=== PATIENT | female | born 1985 | race Caucasian/White ===

== ENCOUNTER 2021-10-30 00:27 | Emergency (ER) | payer MEDICAID, SELFPAY ==
[2021-10-30] VITALS (7 sets, daily range): BP systolic 107–120; BP diastolic 71–94; PULSE 65–98; RESP 18; TEMP 36.8; O2SAT 96–100; BMI 24.7
--- NOTE | 2021-10-30 01:00 | ECG_ITS ---
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 Measurements Intervals [place] Rate: 61 P: 47 OK: 164 QRS: 46 QRSD: 90 T: 54 QT: 418 QTc: 422 Interpretive Statements SINUS RHYTHM WITH SINUS ARRHYTHMIA No previous ECG available for comparison Electronically Signed On 10-30-2021 19:42:37 CDT by Be Alfredo M.D. [id number]
[2021-10-30] MEDS: ondansetron 2 mg/ML SDV 2 mL 4 MG IVP (01:09)
[2021-10-30] MEDS: sodium chloride 0.9% 1,000 ML 999 ML IV (01:09)
--- NOTE | 2021-10-30 01:11 | W.ED.WEAKNES ---
HPI - Weakness General: Chief complaint: Weakness Stated complaint: NOT FEELING WELL/ TOOK UNKNOWN PILL Time Seen by Provider: 10/30/21 00:29 Source: patient History of Present Illness: 36-year-old female who felt well earlier in the day. Towards bedtime, she states that she had smoked some marijuana, and began to get sleepy so she took her nighttime medication. She saw a blue pill in the floor, which resembled one of her normal medications, so she picked it up and took it. She is now not sure if this was an extra pill that she took or not. She began to get dizzy, has some chest discomfort, and was nauseated. Some of her symptoms are improved at this point, but some were not. She still having some palpitations she did not vomit. MD Complaint: generalized weakness Onset (ago): hour(s) Duration: constant Location: generalized Migration: none Severity: moderate Associated symptoms: Reports chest pain, chills and nausea; Denies confusion, melena, dysuria, fever(s) or headache(s) Review of Systems Const: Reports: chills; Denies: fever(s) ENMT: Denies: throat pain Card: Reports: chest pain Resp: Denies: dyspnea, productive cough or non-productive cough GI: Reports: nausea; Denies: abdominal pain or melena : Denies: dysuria Musc: Reports: back pain Neuro: Denies: headache(s) or confusion [facility] ED Female Reproductive History: Date of last menstrual period: 10/11/19 Physical Exam Const: GENERAL APPEARANCE: cooperative and lethargic; not frail appearing ORIENTATION/CONSCIOUSNESS: Yes lethargic HENMT: COMMON NORMALS: normocephalic, atraumatic and Normal external nose present HEAD & SCALP: normocephalic and atraumatic FACE & SINUS: normal facial exam NOSE: Normal external nose present Eye: COMMON NORMALS: Equal, round and reactive pupils present and EOMs intact bilaterally PUPIL: Yes Equal, round and reactive pupils present Chest: CHEST: Yes Symmetrical chest wall rise Resp: COMMON NORMALS: normal respiratory effort, No use of accessory muscles and clear to auscultation bilaterally AUSCULTATION: clear to auscultation bilaterally Cardio: COMMON NORMALS: regular rate and regular rhythm RATE: regular rate RHYTHM: regular rhythm GI: COMMON NORMALS: Normal to inspection, nondistended, normoactive bowel sounds present, Soft to palpation and non-tender PALPATION: Yes Soft to palpation Extremity: COMMON NORMALS: no pedal edema Neuro: ANIL COMA SCALE: document GCS findings Anil coma scale eye opening: Spontaneous Anil coma scale verbal response: Orientated Anil coma scale motor response: Obey commands Anil coma scale total score: 15 SENSORIUM/ORIENTATION: Yes lethargic Course Vital Signs: Vital signs: Vital Signs Temperature 98.2 F 10/30/21 00:29 Pulse Rate 90 10/30/21 00:29 Respiratory Rate 18 10/30/21 00:29 Blood Pressure 119/94 10/30/21 00:29 Pulse Oximetry 96 10/30/21 00:29 MDM - Weakness Medical Decision Making Patient feeling much improved. EKG shows sinus rhythm with sinus arrhythmia. [place] is normal. Intervals are normal. Rate is 60. No ST changes. Troponin is negative. CBC is normal. BMP is essentially normal. No evidence of toxicity on laboratory. She will be allowed home. Lab Data : 10/30/21 00:33 10/30/21 00:33 Laboratory Results WBC 9.9 10^3/uL (4.0-10.0) 10/30/21 00:33 RBC 4.57 10^6/uL (4.1-5.3) 10/30/21 00:33 Hgb 13.6 g/dL (11.5-15.3) 10/30/21 00:33 Hct 38.6 % (37.0-47.0) 10/30/21 00:33 MCV 84.5 fl (81-99) 10/30/21 00:33 MCH 29.8 pg (28.0-34.0) 10/30/21 00:33 MCHC 35.2 g/dL (30.0-36.0) 10/30/21 00:33 RDW 12.4 % (12.1-15.1) 10/30/21 00:33 Plt Count 312 10^3/cmm (130-400) 10/30/21 00:33 MPV 11.3 fL (7.4-10.4) H 10/30/21 00:33 Neut % (Auto) 66.0 % 10/30/21 00:33 Lymph % (Auto) 25.5 % 10/30/21 00:33 [place] % (Auto) 6.8 % 10/30/21 00:33 Eos % (Auto) 0.5 % 10/30/21 00:33 Baso % (Auto) 0.9 % 10/30/21 00:33 Neut # (Auto) 6.51 10^3/uL (1.8-7.7) 10/30/21 00:33 Lymph # (Auto) 2.5 10^3/uL (0.8-4.8) 10/30/21 00:33 [place] # (Auto) 0.7 10^3/uL (0.2-0.9) 10/30/21 00:33 Eos # (Auto) 0.1 10^3/uL (0.0-0.8) 10/30/21 00: Baso # (Auto) 0.1 10^3/uL (0.0-0.1) 10/30/21 00:33 Nucleated RBC % (auto) 0 % 10/30/21 00: Nucleated RBCs # 0.0 /100WBC 10/30/21 00:33 Sodium 134 mmol/L (136-145) L 10/30/21 00:33 Potassium 3.6 mmol/L (3.5-5.1) 10/30/21 00: Chloride 103 mmol/L (98-107) 10/30/21 00: Carbon Dioxide 21 mmol/L (22-29) L 10/30/21 00:33 Anion Gap 13.6 (5-19) 10/30/21 00: BUN 8 mg/dL (6-20) 10/30/21 00: Creatinine 0.5 mg/dL (0.5-0.9) 10/30/21 00:33 GFR Calculation 138.1 mL/min (90-130) H 10/30/21 00:33 Glucose 92 mg/dL (65-115) 10/30/21 00: Calculated Osmolality 276 mOsm/kg (285-295) L 10/30/21 00: Calcium 9.0 mg/dL (8.5-10.5) 10/30/21 00: Total Bilirubin 0.5 mg/dL (0.15-1.2) 10/30/21 00: AST 19 U/L (0-32) 10/30/21 00:33 ALT 28 U/L (0-33) 10/30/21 00:33 Alkaline Phosphatase 74 IU/L (35-105) 10/30/21 00:33 Troponin T Gen 5 ng/L 6 ng/L (0-10) 10/30/21 00:33 Total Protein 6.9 g/dL (6.6-8.7) 10/30/21 00:33 Albumin 4.2 g/dL (3.5-5.2) 10/30/21 00:33 Globulin 2.7 g/dL (1.3-4.6) 10/30/21 00:33 Salicylates 1.5 mg/dL (3-10) L 10/30/21 00:33 Acetaminophen < 5.0 ug/mL (10-30) L 10/30/21 00:33 [place] 0.1 mmol/L (0.6-1.2) L 10/30/21 00:05 Ethyl Alcohol < 10 mg/dL (0-10) 10/30/21 00:33 Discharge Plan Discharge Patient Disposition: Home Clinical Impression: Generalized weakness Condition: Stable Discharge Orders: Discharge ED (Routine); Ordered 10/30/21 Ordered By: Conrad España Referrals: Shahram Mancilla [Primary Care Provider] - 4-7 days Discharge Diet: Advance as tolerated Discharge Activity: Increase activity as tolerated Patient Instructions: Weakness (Generalized) Activity Restrictions/Additional Instructions: Return for fever greater than 100, worsening weakness, speech or language problems, any other concerning symptoms. Coding Level of Care Code ED Professional Services Consultant for Ben Fwd Exam Comprehensive
[2021-10-30 01:18] LABS: Basophils # 0.1 10^3/uL (0.0-0.1); Basophils % 0.9 %; Eosinophils # 0.1 10^3/uL (0.0-0.8); Eosinophils % 0.5 %; Hematocrit 38.6 % (37.0-47.0); Hemoglobin 13.6 g/dL (11.5-15.3); Lymphocytes # 2.5 10^3/uL (0.8-4.8); Lymphocytes % 25.5 %; Mean Corpuscular HGB Conc 35.2 g/dL (30.0-36.0); Mean Corpuscular Hemoglobin 29.8 pg (28.0-34.0); Mean Corpuscular Volume 84.5 fl (81-99); Mean Platelet Volume 11.3 fL (7.4-10.4); Monocytes # 0.7 10^3/uL (0.2-0.9); Monocytes % 6.8 %; Neutrophils # 6.51 10^3/uL (1.8-7.7); Nucleated Red Blood Cells % 0 %; Platelet Count 312 10^3/cmm (130-400); Red Blood Count 4.57 10^6/uL (4.1-5.3); Red Cell Distribution Width 12.4 % (12.1-15.1); White Blood Count 9.9 10^3/uL (4.0-10.0)
[2021-10-30 01:31] LABS: Alanine Aminotransferase 28 U/L (0-33); Albumin Level 4.2 g/dL (3.5-5.2); Alkaline Phosphatase 74 IU/L (35-105); Anion Gap 13.6 (5-19); Aspartate Amino Transferase 19 U/L (0-32); Blood Urea Nitrogen 8 mg/dL (6-20); Carbon Dioxide 21 mmol/L (22-29); Chloride 103 mmol/L (98-107); Globulin 2.7 g/dL (1.3-4.6); Glomerular Filtration Rate 138.1 mL/min (90-130); Glucose 92 mg/dL (65-115); Osmolality Calculated 276 mOsm/kg (285-295); Potassium 3.6 mmol/L (3.5-5.1); Salicylate 1.5 mg/dL (3-10); Sodium 134 mmol/L (136-145); Total Bilirubin 0.5 mg/dL (0.15-1.2); Total Protein 6.9 g/dL (6.6-8.7)
[2021-10-30 01:32] LABS: Acetaminophen < 5.0 ug/mL (10-30); Alcohol Level < 10 mg/dL (0-10); Troponin T (5th) Once 6 ng/L (0-10)
[2021-10-30 01:46] LABS: Lithium 0.1 mmol/L (0.6-1.2)
[2021-10-30 03:54] LABS: Add Urine Microscopic? NO; Charge for UA Resulting for Rev
[2021-10-30 03:56] LABS: Bilirubin Urine Neg (Negative); Blood Urine Neg (Negative); Glucose Urine UA Norm (Normal); Ketones Urine Negative (Negative); Leukocyte Esterase Urine Negative (Negative); Nitrate Urine Negative (Negative); Protein Urine Neg (Negative); Specific Gravity, Urine 1.005 (1.005-1.030); Urine Appearance Clear (CLEAR); Urine Color Straw (Yellow); Urobilinogen Urine Norm (Negative); pH Urine 6 (5-7)
[2021-10-30 04:05] LABS: Amphetamines Screen Urine Negative (Negative); Barbiturates Screen Urine Negative (Negative); Benzodiazepines Screen Urine Negative (Negative); Cocaine Screen Urine Negative (Negative); Opiate Screen Urine Negative (Negative); PCP Screen Urine Negative (Negative); THC Screen Urine Positive (Negative)
== END 2021-10-30 03:30 | disposition home or self-care (01) ==
PROVIDERS: Emergency Provider Emergency Medicine; PCP Family Medicine
DX: R53.1 Weakness (principal)
CPT/HCPCS: 80053; 80178; 80306; 80307; 81003; 84484; 85025; 93005; 96361; 96374; 99284; J2405; J7030

== ENCOUNTER 2022-02-18 20:42 | Emergency (ER) | payer MEDICAID, SELFPAY ==
[2022-02-18 20:52] VITALS: BMI 24.1
[2022-02-18 20:59] VITALS: BP 113/78; PULSE 76; RESP 18; TEMP 36.8; O2SAT 96
[2022-02-18 21:32] LABS: Basophils # 0.1 10^3/uL (0.0-0.1); Basophils % 0.9 %; Eosinophils # 0.9 10^3/uL (0.0-0.8); Eosinophils % 6.6 %; Hematocrit 45.1 % (37.0-47.0); Hemoglobin 15.1 g/dL (11.5-15.3); Lymphocytes # 3.8 10^3/uL (0.8-4.8); Lymphocytes % 27.3 %; Mean Corpuscular HGB Conc 33.5 g/dL (30.0-36.0); Mean Corpuscular Hemoglobin 29.7 pg (28.0-34.0); Mean Corpuscular Volume 88.8 fl (81-99); Mean Platelet Volume 10.3 fL (7.4-10.4); Monocytes # 0.9 10^3/uL (0.2-0.9); Monocytes % 6.6 %; Neutrophils # 8.17 10^3/uL (1.8-7.7); Neutrophils % 58.2 %; Nucleated Red Blood Cells % 0 %; Platelet Count 349 10^3/cmm (130-400); Red Blood Count 5.08 10^6/uL (4.1-5.3)
--- NOTE | 2022-02-18 21:32 | ECG_ITS ---
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 Measurements Intervals [place] Rate: 59 P: 55 MS: 148 QRS: 62 QRSD: 83 T: 61 QT: 398 QTc: 396 Interpretive Statements SINUS BRADYCARDIA POSSIBLE LEFT ATRIAL ENLARGEMENT [-0.1mV P-WAVE IN V1/V2] Compared to ECG 10/30/2021 01:17:00 Sinus rhythm no longer present Sinus arrhythmia no longer present Electronically Signed On 02-19-2022 7:35:34 CDT by Uvaldo Valdez M.D. [id number]
[2022-02-18 22:00] LABS: SARS Covid-2 Antigen Negative (Negative)
[2022-02-18 22:01] LABS: Add Urine Microscopic? NO; Charge for UA Resulting for Rev
[2022-02-18 22:03] LABS: Alanine Aminotransferase 21 U/L (0-33); Albumin Level 4.2 g/dL (3.5-5.2); Alkaline Phosphatase 86 U/L (35-105); Anion Gap 16.2 (5-19); Aspartate Amino Transferase 16 U/L (0-32); Blood Urea Nitrogen 16 mg/dL (6-20); Carbon Dioxide 22 mmol/L (22-29); Chloride 103 mmol/L (98-107); Globulin 3.2 g/dL (1.3-4.6); Glomerular Filtration Rate 70.1 mL/min (90-130); Glucose 95 mg/dL (65-115); Osmolality Calculated 285 mOsm/kg (285-295); Potassium 4.2 mmol/L (3.5-5.1); Salicylate 0.7 mg/dL (3-10); Sodium 137 mmol/L (136-145); Thyroid Stimulating Hormone 1.68 uIU/mL (0.27-4.20); Total Bilirubin 0.6 mg/dL (0.15-1.2); Total Protein 7.4 g/dL (6.6-8.7)
[2022-02-18 22:04] LABS: Urine Appearance Clear (CLEAR); Urine Color Yellow (Yellow)
[2022-02-18 22:04] LABS: Acetaminophen < 5.0 ug/mL (10-30); Alcohol Level < 10 mg/dL (0-10)
[2022-02-18 22:05] LABS: Bilirubin Urine Neg (Negative); Blood Urine Neg (Negative); Glucose Urine UA Norm (Normal); HCG Qualitative Urine. Negative (Negative); Ketones Urine Negative (Negative); Leukocyte Esterase Urine Negative (Negative); Nitrate Urine Negative (Negative); Protein Urine Neg (Negative); Specific Gravity, Urine 1.025 (1.005-1.030); Urobilinogen Urine Neg (Negative); pH Urine 5 (5-7)
[2022-02-18 22:13] LABS: Amphetamines Screen Urine Positive (Negative); Barbiturates Screen Urine Negative (Negative); Benzodiazepines Screen Urine Negative (Negative); Cocaine Screen Urine Negative (Negative); Opiate Screen Urine Negative (Negative); PCP Screen Urine Negative (Negative); THC Screen Urine Positive (Negative)
--- NOTE | 2022-02-18 22:43 | W.ED.PSYCHS ---
HPI - Psych General: Chief Complaint: Psychiatric Symptoms Stated Complaint: MHE Time Seen by Provider: 02/18/22 20:52 Source: patient History of Present Illness: 36-year-old female with a history of depression. She presents with worsening depression, some hallucinations at times, and a feeling of worthlessness. She stated to triage that I just want to go into the [place] and cut my wrist . She is tearful on exam. She has had multiple hospitalizations in the past, the last one was over a year ago in [place]. MD complaint: feels depressed Onset (ago): week(s) (2) Duration: constant History of same: Yes Relieving factors: none Exacerbating factors: none Associated psychiatric symptoms: depression, suicidal ideation and auditory hallucinations Associated symptoms: Reports auditory hallucinations, depression and suicidal ideation; Deny visual hallucinations or delusions Treatments prior to arrival: none If self harm: admits thoughts of self harm Review of Systems Const: Denies: fever(s) Card: Denies: chest pain Resp: Reports: non-productive cough (chronic); Denies: dyspnea or productive cough GI: Denies: abdominal pain, vomiting or diarrhea : Denies: difficulty voiding or dysuria Skin/Breast: Denies: rash Neuro: Denies: confusion Psych: Reports: depression, auditory hallucinations and suicidal ideation; Denies: visual hallucinations [facility] Female Reproductive History: Date of last menstrual period: 10/11/19 Physical Exam Const: GENERAL APPEARANCE: cooperative; not ill appearing and not frail appearing HENMT: COMMON NORMALS: normocephalic, atraumatic and Normal external nose present HEAD & SCALP: normocephalic and atraumatic FACE & SINUS: normal facial exam and face symmetric NOSE: Normal external nose present Eye: COMMON NORMALS: Equal, round and reactive pupils present and EOMs intact bilaterally PUPIL: Yes Equal, round and reactive pupils present Neck/C-Spine: GENERAL: Yes trachea midline Chest: CHEST: Yes Symmetrical chest wall rise Resp: COMMON NORMALS: normal respiratory effort, No retractions, No use of accessory muscles and clear to auscultation bilaterally AUSCULTATION: clear to auscultation bilaterally Cardio: COMMON NORMALS: regular rate and regular rhythm RATE: regular rate RHYTHM: regular rhythm GI: COMMON NORMALS: Normal to inspection, nondistended, normoactive bowel sounds present Extremity: COMMON NORMALS: no pedal edema Neuro: KIRAN COMA SCALE: document GCS findings Kiran coma scale eye opening: Spontaneous Kiran coma scale verbal response: Orientated Kiran coma scale motor response: Obey commands Kiran coma scale total score: 15 SPEECH: speech normal SENSORY EXAM: Yes extremities (intact) Psych: COMMON NORMALS: speech normal ATTITUDE: Yes Withdrawn affect present ACTIVITY/MOTOR BEHAVIOR: Yes psychomotor slowing SPEECH: Yes normal speech MOOD & AFFECT: Yes depressed mood and Yes tearful THOUGHT CONTENT: No delusions ATTENTION/CONCENTRATION: Yes attention grossly intact and Yes concentration grossly intact MEMORY/COGNITION: Yes memory grossly intact and Yes cognition grossly intact INSIGHT: Fair insight present (Psych) JUDGEMENT: Fair judgement present (Psych) Skin: COMMON NORMALS: no rashes or lesions noted GENERAL SKIN EXAM: no rashes or lesions noted Course Vital Signs: Vital signs: Vital Signs Temperature 98.2 F 02/18/22 20:59 Pulse Rate 76 02/18/22 20:59 Respiratory Rate 18 02/18/22 20:59 Blood Pressure 113/78 02/18/22 20:59 Pulse Oximetry 96 02/18/22 20:59 MDM - Psych Medical Decision Making Patient has significant depression, with suicidal ideation. Her white blood cell count is mildly elevated, but with no shift. Her BMP is normal. Liver enzymes are normal. Urinalysis is negative. Urine drug screen is positive for amphetamines and marijuana. This could be contributing. She is medically stable. She came in willingly. We have no beds available at this facility. We believe we have an accepting facility in [facility]. Transport when available. Lab Data : 02/18/22 21:27 02/18/22 21: Laboratory Results WBC 14.0 10^3/uL (4.0-10.0) H 02/18/22 21: RBC 5.08 10^6/uL (4.1-5.3) 02/18/22 21: Hgb 15.1 g/dL (11.5-15.3) 02/18/22 21: Hct 45.1 % (37.0-47.0) 02/18/22 21: MCV 88.8 fl (81-99) 02/18/22 21: MCH 29.7 pg (28.0-34.0) 02/18/22 21: MCHC 33.5 g/dL (30.0-36.0) 02/18/22 21: RDW 13.0 % (12.1-15.1) 02/18/22: Plt Count 349 10^3/cmm (130-400) 02/18/22 21: MPV 10.3 fL (7.4-10.4) 02/18/22 21: Neut % (Auto) 58.2 % 02/18/22: Lymph % (Auto) 27.3 % 02/18/22 21: [place] % (Auto) 6.6 % 02/18/22: Eos % (Auto) 6.6 % 02/18/22: Baso % (Auto) 0.9 % 02/18/22: Neut # (Auto) 8.17 10^3/uL (1.8-7.7) H 02/18/22: Lymph # (Auto) 3.8 10^3/uL (0.8-4.8) 02/18/22: [place] # (Auto) 0.9 10^3/uL (0.2-0.9) 02/18/22: Eos # (Auto) 0.9 10^3/uL (0.0-0.8) H 02/18/22: Baso # (Auto) 0.1 10^3/uL (0.0-0.1) 02/18/22: Nucleated RBC % (auto) 0 % 02/18/22: Nucleated RBCs # 0.0 /100WBC 02/18/22 21: Sodium 137 mmol/L (136-145) 02/18/22 21: Potassium 4.2 mmol/L (3.5-5.1) 02/18/22: Chloride 103 mmol/L (98-107) 02/18/22: Carbon Dioxide 22 mmol/L (22-29) 02/18/22 21: Anion Gap 16.2 (5-19) 02/18/22 21: BUN 16 mg/dL (6-20) 02/18/22: Creatinine 0.9 mg/dL (0.5-0.9) 02/18/22 21:27 GFR Calculation 70.1 mL/min (90-130) L 02/18/22 21: Glucose 95 mg/dL (65-115) 02/18/22 21: Calculated Osmolality 285 mOsm/kg (285-295) 02/18/22 21: Calcium 9.0 mg/dL (8.5-10.5) 02/18/22 21: Total Bilirubin 0.6 mg/dL (0.15-1.2) 02/18/22 21: AST 16 U/L (0-32) 02/18/22 21: ALT 21 U/L (0-33) 02/18/22 21: Alkaline Phosphatase 86 U/L (35-105) 02/18/22 21: Total Protein 7.4 g/dL (6.6-8.7) 02/18/22 21: Albumin 4.2 g/dL (3.5-5.2) 02/18/22: Globulin 3.2 g/dL (1.3-4.6) 02/18/22 21: TSH 1.68 uIU/mL (0.27-4.20) 02/18/22 21: HCG, Qual Negative (Negative) 02/18/22 21:54 Urine Color Yellow (Yellow) 02/18/22 21:54 Urine Appearance Clear (CLEAR) 02/18/22 21:54 Urine pH 5 (5-7) 02/18/22 21:54 Ur Specific [place] 1.025 (1.005-1.030) 02/18/22 21:54 Urine Protein Neg (Negative) 02/18/22 21:54 Urine Glucose (UA) Norm (Normal) 02/18/22 21:54 Urine Ketones Negative (Negative) 02/18/22 21:54 Urine Blood Neg (Negative) 02/18/22 21:54 Urine Nitrate Negative (Negative) 02/18/22 21:54 Urine Bilirubin Neg (Negative) 02/18/22 21:54 Urine Urobilinogen Neg mg/dL (Negative) 02/18/22 21:54 Ur Leukocyte Esterase Negative (Negative) 02/18/22 21:54 Salicylates 0.7 mg/dL (3-10) L 02/18/22 21:27 Urine Opiates Screen Negative ng/mL (Negative) 02/18/22 21:54 Acetaminophen < 5.0 ug/mL (10-30) L 02/18/22 21:27 Ur Barbiturates Screen Negative ng/mL (Negative) 02/18/22 21:54 Ur Phencyclidine Scrn Negative ng/mL (Negative) 02/18/22 21:54 Ur Amphetamines Screen Positive ng/mL (Negative) H 02/18/22 21:54 U Benzodiazepines Scrn Negative ng/mL (Negative) 02/18/22 21:54 [place] 0.4 mmol/L (0.6-1.2) L 02/18/22 23:14 Urine Cocaine Screen Negative ng/mL (Negative) 02/18/22 21:54 U Marijuana (THC) Screen Positive ng/mL (Negative) H 02/18/22 21:54 Ethyl Alcohol < 10 mg/dL (0-10) 02/18/22 21:27 SARS-CoV-2 Ag (Rapid) Negative (Negative) 02/18/22 21:27 Discharge Plan Discharge Patient Disposition: Xfer Psychiatric Hosp Clinical Impression: Suicidal ideation, Depression Condition: Stable Referrals: Shahram Mancilla [Primary Care Provider] - Coding Level of Care Code ED Entomology Teacher for Chg Fwd Exam Comprehensive
[2022-02-18 23:35] LABS: Lithium 0.4 mmol/L (0.6-1.2)
[2022-02-19 08:47] VITALS: BP 111/73; PULSE 65; RESP 16; TEMP 36.7; O2SAT 98
--- NOTE | 2022-02-19 09:24 | ED.C_ITS ---
HPI - Psych General: Chief Complaint: Psychiatric Symptoms Stated Complaint: MHE Time Seen by Provider: 02/18/22 20:52 Source: patient History of Present Illness: Duration: constant Relieving factors: none Exacerbating factors: none Treatments prior to arrival: none PFS ED PFSH: Medical History (Updated 02/27/22 @ 08:36 by Madonna Bass) Psychiatric care Female Reproductive History: Date of last menstrual period: 10/11/19 Course Vital Signs: Vital signs: Vital Signs Temperature 98.0 F 02/19/22 08:47 Pulse Rate 65 02/19/22 08:47 Respiratory Rate 16 02/19/22 08:47 Blood Pressure 111/73 02/19/22 08:47 Pulse Oximetry 98 02/19/22 08:47 Oxygen Delivery Me thod 02/19/22 08:47 MDM - Psych Lab Data : 02/18/22 21:27 02/18/22 21:27 Laboratory Results WBC 14.0 10^3/uL (4.0-10.0) H 02/18/22 21: RBC 5.08 10^6/uL (4.1-5.3) 02/18/22 21: Hgb 15.1 g/dL (11.5-15.3) 02/18/22 21: Hct 45.1 % (37.0-47.0) 02/18/22 21: MCV 88.8 fl (81-99) 02/18/22 21: MCH 29.7 pg (28.0-34.0) 02/18/22 21: MCHC 33.5 g/dL (30.0-36.0) 02/18/22 21: RDW 13.0 % (12.1-15.1) 02/18/22 21: Plt Count 349 10^3/cmm (130-400) 02/18/22 21: MPV 10.3 fL (7.4-10.4) 02/18/22 21: Neut % (Auto) 58.2 % 02/18/22 21: Lymph % (Auto) 27.3 % 02/18/22 21: [place] % (Auto) 6.6 % 02/18/22 21: Eos % (Auto) 6.6 % 02/18/22 21: Baso % (Auto) 0.9 % 02/18/22 21: Neut # (Auto) 8.17 10^3/uL (1.8-7.7) H 02/18/22 21: Lymph # (Auto) 3.8 10^3/uL (0.8-4.8) 02/18/22 21: [place] # (Auto) 0.9 10^3/uL (0.2-0.9) 02/18/22: Eos # (Auto) 0.9 10^3/uL (0.0-0.8) H 02/18/22 21: Baso # (Auto) 0.1 10^3/uL (0.0-0.1) 02/18/22: Nucleated RBC % (auto) 0 % 02/18/22 21: Nucleated RBCs # 0.0 /100WBC 02/18/22 21: Sodium 137 mmol/L (136-145) 02/18/22 21: Potassium 4.2 mmol/L (3.5-5.1) 02/18/22 21: Chloride 103 mmol/L (98-107) 02/18/22 21: Carbon Dioxide 22 mmol/L (22-29) 02/18/22: Anion Gap 16.2 (5-19) 02/18/22 21: BUN 16 mg/dL (6-20) 02/18/22 21: Creatinine 0.9 mg/dL (0.5-0.9) 02/18/22: GFR Calculation 70.1 mL/min (90-130) L 02/18/22 21: Glucose 95 mg/dL (65-115) 02/18/22 21: Calculated Osmolality 285 mOsm/kg (285-295) 02/18/22: Calcium 9.0 mg/dL (8.5-10.5) 02/18/22: Total Bilirubin 0.6 mg/dL (0.15-1.2) 02/18/22 21: AST 16 U/L (0-32) 02/18/22 21: ALT 21 U/L (0-33) 02/18/22 21: Alkaline Phosphatase 86 U/L (35-105) 02/18/22 21:27 Total Protein 7.4 g/dL (6.6-8.7) 02/18/22 21:27 Albumin 4.2 g/dL (3.5-5.2) 02/18/22 21:27 Globulin 3.2 g/dL (1.3-4.6) 02/18/22 21:27 TSH 1.68 uIU/mL (0.27-4.20) 02/18/22 21:27 HCG, Qual Negative (Negative) 02/18/22 21:54 Urine Color Yellow (Yellow) 02/18/22 21:54 Urine Appearance Clear (CLEAR) 02/18/22 21:54 Urine pH 5 (5-7) 02/18/22 21:54 Ur Specific [place] 1.025 (1.005-1.030) 02/18/22 21:54 Urine Protein Neg (Negative) 02/18/22 21:54 Urine Glucose (UA) Norm (Normal) 02/18/22 21:54 Urine Ketones Negative (Negative) 02/18/22 21:54 Urine Blood Neg (Negative) 02/18/22 21:54 Urine Nitrate Negative (Negative) 02/18/22 21:54 Urine Bilirubin Neg (Negative) 02/18/22 21:54 Urine Urobilinogen Neg mg/dL (Negative) 02/18/22 21:54 Ur Leukocyte Esterase Negative (Negative) 02/18/22 21:54 Salicylates 0.7 mg/dL (3-10) L 02/18/22 21:27 Urine Opiates Screen Negative ng/mL (Negative) 02/18/22 21:54 Acetaminophen < 5.0 ug/mL (10-30) L 02/18/22 21:27 Ur Barbiturates Screen Negative ng/mL (Negative) 02/18/22 21:54 Ur Phencyclidine Scrn Negative ng/mL (Negative) 02/18/22 21:54 Ur Amphetamines Screen Positive ng/mL (Negative) H 02/18/22 21:54 U Benzodiazepines Scrn Negative ng/mL (Negative) 02/18/22 21:54 [place] 0.4 mmol/L (0.6-1.2) L 02/18/22 23:14 Urine Cocaine Screen Negative ng/mL (Negative) 02/18/22 21:54 U Marijuana (THC) Screen Positive ng/mL (Negative) H 02/18/22 21:54 Ethyl Alcohol < 10 mg/dL (0-10) 02/18/22 21:27 SARS-CoV-2 Ag (Rapid) Negative (Negative) 02/18/22 21:27 Discharge Plan Discharge Patient Disposition: Home Clinical Impression: Suicidal ideation, Depression Condition: Stable Prescriptions: New Wellbutrin XL 150 mg tablet extended release 24 hr 150 mg PO QAM Qty: 30 1RF Seroquel 100 mg tablet 100 mg PO BID Qty: 60 1RF Discontinued quetiapine 25 mg tablet 50 mg PO BEDTIME No Action levetiracetam 500 mg tablet 500 mg PO BID lithium carbonate 150 mg capsule 300 mg PO BID hydroxyzine HCl 25 mg tablet 25 mg PO TID PRN (Reason: Itching) Discharge Orders: Discharge ED (Routine); Ordered 02/19/22 Ordered By: Martinez Trujillo Referrals: Shahram Mancilla [Primary Care Provider] - Discharge Diet: Advance as tolerated Discharge Activity: Resume usual activity Patient Instructions: Depression (ED) Coding Level of Care Code ED Senior Director Finance for Ben Piper
== END 2022-02-19 09:23 | disposition home or self-care (01) ==
PROVIDERS: Emergency Medicine; Emergency Provider Emergency Medicine; PCP Family Medicine
DX: F32.A Depression, unspecified (principal); R45.851 Suicidal ideations
CPT/HCPCS: 80053; 80178; 80306; 80307; 81003; 81025; 84443; 85025; 87426; 93005; 99285

== ENCOUNTER 2022-08-20 15:00 | Outpatient (CLI) | payer MEDICAID, SELFPAY ==
--- NOTE | 2022-08-20 15:14 | MM_ITS ---
WS: [id number] BILATERAL 3D TOMOSYNTHESIS DIGITAL SCREENING MAMMOGRAPHY WITH CAD CLINICAL INFORMATION: SCREENING HISTORY: Screening mammogram. Palpable lumps LEFT breast. RIGHT breast discharge clear COMPARISON: 2018 TECHNIQUE: Bilateral CC and MLO views. FINDINGS: Numerous palpable markers bilateral breast LEFT greater than RIGHT. Bilateral diagnostic mammography and ultrasound recommended in further evaluation. Ovoid nodule outer LEFT breast measuring 7 mm is u nchanged. Scattered fibroglandular densities bilaterally. Dense nodular breast tissue upper outer LEFT breast m easuring 10 mm appears progressed compared to previous. Recommend LEFT breast diagnostic mammography with spot magnification views. MM/[place] [id number] IMPRESSION: BI-RADS: 0-Incomplete: Need additional imaging evaluation FOLLOW UP: Need Additional Imaging LEFT breast diagnostic mammography and ultrasound recommended in further evalua tion of the multiple palpable abnormalities LEFT breast and increasing asymmetr ic density outer LEFT breast. RIGHT breast diagnostic mammography for breast discharge with subareolar ultras ound and ultrasound of the palpable abnormalities
== END 2022-08-20 15:01 | disposition home or self-care (01) ==
PROVIDERS: PCP Family Medicine; Visit Provider Family Medicine
DX: Z12.31 Encounter for screening mammogram for malignant neoplasm of breast (principal)
CPT/HCPCS: 77063; 77067

== ENCOUNTER 2022-10-25 14:52 | Outpatient (CLI) | payer MEDICAID, SELFPAY ==
--- NOTE | 2022-10-25 | US_ITS ---
WS: [id number] BILATERAL 3D TOMOSYNTHESIS DIGITAL DIAGNOSTIC MAMMOGRAPHY WITH CAD CLINICAL INFORMATION: ABNORMAL MAMMO HISTORY: Bilateral palpable lumps COMPARISON: August 20, 2022 TECHNIQUE: Bilateral CC, MLO, and ML views. FINDINGS: The breasts are composed of heterogeneous fibroglandular density, which can limit the detection of sm all underlying mass lesions. Bilateral palpable markers. Dense tissue upper outer LEFT breast unchang ed since August 20, 2022. Ultrasound described below. ULTRASOUND BREAST BILATERAL TECHNIQUE: Ultrasound bilateral breast focused area of concern. CLINICAL INFORMATION: ABNORMAL MAMMO FINDINGS: RIGHT BREAST: Ultrasound RIGHT breast in the areas of palpable concern. Several normal-appearing lymp h nodes near axillary tail area of palpable concern. Dense parenchymal tissue 7:00 position 2 cm from the nipple. No suspicious abnormalities deep to the nipple. Minimal ductal ectasia. LEFT BREAST: Ultrasound LEFT breast 11:00 position 3 cm from the nipple in area of palpable concern d emonstrates normal parenchymal tissue. Normal underlying parenchymal tissue in the 4:00 position 3 cm from the nipple. Lobulated intramammary lymph node at 3:00 position 4 cm from nipple. Additional inc idental lymph nodes the 1:00 position 5 cm from the nipple. No abnormalities in the LEFT areola. US/US breast BI limited* [id number] IMPRESSION: BI-RADS: 2-Benign FOLLOW UP: 1 Year Follow-up Recommend return to annual screening mammography.
--- NOTE | 2022-10-25 15:02 | MM_ITS ---
WS: [id number] BILATERAL 3D TOMOSYNTHESIS DIGITAL DIAGNOSTIC MAMMOGRAPHY WITH CAD CLINICAL INFORMATION: ABNORMAL MAMMO HISTORY: Bilateral palpable lumps COMPARISON: August 20, 2022 TECHNIQUE: Bilateral CC, MLO, and ML views. FINDINGS: The breasts are composed of heterogeneous fibroglandular density, which can limit the detection of sm all underlying mass lesions. Bilateral palpable markers. Dense tissue upper outer LEFT breast unchang ed since August 20, 2022. Ultrasound described below. ULTRASOUND BREAST BILATERAL TECHNIQUE: Ultrasound bilateral breast focused area of concern. CLINICAL INFORMATION: ABNORMAL MAMMO FINDINGS: RIGHT BREAST: Ultrasound RIGHT breast in the areas of palpable concern. Several normal-appearing lymp h nodes near axillary tail area of palpable concern. Dense parenchymal tissue 7:00 position 2 cm from the nipple. No suspicious abnormalities deep to the nipple. Minimal ductal ectasia. LEFT BREAST: Ultrasound LEFT breast 11:00 position 3 cm from the nipple in area of palpable concern d emonstrates normal parenchymal tissue. Normal underlying parenchymal tissue in the 4:00 position 3 cm from the nipple. Lobulated intramammary lymph node at 3:00 position 4 cm from nipple. Additional inc idental lymph nodes the 1:00 position 5 cm from the nipple. No abnormalities in the LEFT areola. MM/[id number] IMPRESSION: BI-RADS: 2-Benign FOLLOW UP: 1 Year Follow-up Recommend return to annual screening mammography.
== END 2022-10-25 14:53 | disposition home or self-care (01) ==
PROVIDERS: PCP Family Medicine; Visit Provider Nurse Practitioner Family
DX: R92.8 Other abnormal and inconclusive findings on diagnostic imaging of breast (principal)
CPT/HCPCS: 76642; 77062; G0279

== ENCOUNTER 2023-02-20 17:59 | Emergency (ER) | payer MEDICAID, SELFPAY ==
[2023-02-20 18:17] VITALS: BP 121/76; PULSE 84; RESP 17; TEMP 36.9; O2SAT 98; BMI 25.0
--- NOTE | 2023-02-20 18:25 | CTR_ITS ---
PROCEDURE INFORMATION: Exam: CT Head Without Contrast Exam date and time: 02/20/2023 7:15 PM Age: 37 years old Clinical indication: Condition or disease; Convulsions or seizures; Unspecified; Additional info: Seizure, AMS TECHNIQUE: Imaging protocol: Computed tomography of the head without contrast. Radiation optimization: All CT scans at this facility use at least one of these dose optimization techniques: automated exposure control; mA and/or kV adjustment per patient size (includes targeted exams where dose is matched to clinical indication); or iterative reconstruction. REPORTING DATA: Count of CT and Cardiac NM exams in prior 12 months: This patient has received 0 known CTs and 0 known cardiac nuclear medicine studies in the 12 months prior to the current study. COMPARISON: CT head wo con* [id number] 11/17/2018 4:33 PM RADIATION DOSE METRICS: Total DLP (mGy-cm): 1025 FINDINGS: Brain: The sulci are normal. No abnormal brain attenuation. No intracranial hemorrhage. Stable prominent cisterna magna versus arachnoid cyst in the right posterior fossa. Cerebral ventricles: No ventriculomegaly. Pituitary gland and sella: Partially empty sella. Paranasal sinuses: Small polyp or retention cyst in a posterior left ethmoid air cell. The paranasal sinuses are otherwise clear. Mastoid air cells: Visualized mastoid air cells are well aerated. Bones/joints: Unremarkable. No acute fracture. Soft tissues: Unremarkable. CT/CT head wo con* [id number] IMPRESSION: Stable CT head. No acute intracranial abnormality.
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
[2023-02-20] MEDS: ALPRAZolam 0.5 mg Tablet PO (19:02)
[2023-02-20] MEDS: OLANZapine 5 mg ODT PO (19:02)
[2023-02-20 19:17] LABS: Amphetamines Screen Urine Negative (Negative); Barbiturates Screen Urine Negative (Negative); Benzodiazepines Screen Urine Negative (Negative); Cocaine Screen Urine Negative (Negative); Opiate Screen Urine Negative (Negative); PCP Screen Urine Negative (Negative); THC Screen Urine Positive (Negative)
[2023-02-20 19:31] LABS: HCG, Serum Qual Negative (Negative)
[2023-02-20 19:36] LABS: Add Urine Microscopic? YES; Bilirubin Urine Neg (Negative); Blood Urine 2+ (Negative); Glucose Urine UA Norm (Normal); Ketones Urine Negative (Negative); Leukocyte Esterase Urine Negative (Negative); Nitrate Urine Negative (Negative); Protein Urine Neg (Negative); Specific Gravity, Urine 1.025 (1.005-1.030); Urine Appearance SL Hazy (CLEAR); Urine Color Yellow (Yellow); Urobilinogen Urine 1 mg/dL (Negative); pH Urine 5 (5-7)
[2023-02-20 19:37] LABS: Add Urine Culture? No; Bacteria Urine TRACE /hpf; Mucus Urine 2+ /hpf; RBC Urine 0-4 /hpf (0-2)
[2023-02-20 19:38] LABS: Alanine Aminotransferase 19 U/L (0-33); Albumin Level 4.3 g/dL (3.5-5.2); Alkaline Phosphatase 69 U/L (35-105); Aspartate Amino Transferase 17 U/L (0-32); Blood Urea Nitrogen 13 mg/dL (6-20); Calcium 8.8 mg/dL (8.5-10.5); Carbon Dioxide 25 mmol/L (22-29); Chloride 103 mmol/L (98-107); Globulin 2.8 g/dL (1.3-4.6); Glomerular Filtration Rate 93.2 mL/min (90-130); Glucose 106 mg/dL (65-115); Osmolality Calculated 283 mOsm/kg (285-295); Sodium 136 mmol/L (136-145); Total Bilirubin 0.5 mg/dL (0.15-1.2); Total Protein 7.1 g/dL (6.6-8.7)
[2023-02-20 19:46] LABS: Basophils # 0.1 10^3/uL (0.0-0.1); Basophils % 1.2 %; Eosinophils # 0.6 10^3/uL (0.0-0.8); Eosinophils % 6.1 %; Hematocrit 44.1 % (36-47); Lymphocytes # 2.9 10^3/uL (0.8-4.8); Lymphocytes % 30.2 %; Mean Corpuscular HGB Conc 34.5 g/dL (30-55); Mean Corpuscular Volume 87.2 fl (85-98); Mean Platelet Volume 11.1 fL (7.4-10.4); Monocytes # 0.8 10^3/uL (0.2-0.9); Monocytes % 8.4 %; Neutrophils % 53.9 %; Nucleated Red Blood Cells % 0 %; Platelet Count 349 10^3/cmm (157-399); Red Blood Count 5.06 10^6/uL (3.85-5.65); Red Cell Distribution Width 12.4 % (12.1-15.1); White Blood Count 9.65 10^3/uL (3.29-11.43)
[2023-02-20 20:19] LABS: Lithium 0.1 mmol/L (0.6-1.2)
[2023-02-20] MEDS: levETIRAcetam 1,000 mg/10 mL UDC 500 MG PO (20:51)
== END 2023-02-20 20:53 | disposition home or self-care (01) ==
PROVIDERS: Emergency Medicine; Emergency Provider Emergency Medicine; PCP Family Medicine
DX: F41.0 Panic disorder [episodic paroxysmal anxiety] (principal); R56.9 Unspecified convulsions; Z76.0 Encounter for issue of repeat prescription; F17.210 Nicotine dependence, cigarettes, uncomplicated
CPT/HCPCS: 36415; 70450; 80053; 80178; 80306; 81001; 83735; 84703; 85025; 99284